=== PATIENT | female | born 1945 | race Caucasian/White ===

== ENCOUNTER 2016-11-19 16:24 | Inpatient (IN) | payer OTHER ==
[~2016-11-19] VITALS: Ht 165.1 cm; Wt 76.8 kg
--- NOTE | ~2016-11-19 | EKG ---
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
--- NOTE | ~2016-11-19 | H ---
[facility] [place] [address] HISTORY AND PHYSICAL Name: BELLO THOMAS Room #: 458-P [facility] IN M.R.#: [id number] Admission: 11/19/16 Attend Phys: Oseas Kitchen MD Discharge: Date of : 46 Report #: [id number] THIS REPORT FOR: //name// CC: Oseas Kitchen DATE OF SERVICE: 11/19/2016 CHIEF COMPLAINT: Trouble walking. HISTORY OF PRESENT ILLNESS: The patient is a 71-year-old female who came to the office this afternoon after a sudden developed of trouble walking around 10:00 this morning. She said she was in her normal state of health and she and her were out walking into a store, when she felt a sudden episode of unsteadiness, imbalance and dizziness, she described as a sense of spinning. She was leaning over towards the left side and felt as though she were going to fall. Her had to help her to the ground and she was unable to stand up due to severe dizziness and spinning. Eventually, some other customers helped and they got her into a chair to sit down. She denied any nausea or vomiting with the episode. She said since then she has had some mild headache or aching on the right side of her head, on the lateral area. She said this afternoon, the dizziness is a little better and her gait is somewhat improved, but she is still imbalanced. PAST MEDICAL HISTORY: Hypertension, osteoarthritis and essential tremor. PAST SURGICAL HISTORY: She has had a left total knee replacement. FAMILY HISTORY: Parents had heart disease. SOCIAL HISTORY: No chronic alcohol or tobacco use. She is and lives with her . ALLERGIES: CELEBREX and ANAPROX. MEDICATIONS: Aspirin 81 mg, Bystolic 10 mg, multivitamin, calcium, pravastatin 40 mg, primidone 50 mg twice a day, ibuprofen and Benicar and hydrochlorothiazide 40/12.5 mg. REVIEW OF SYSTEMS: Other than the above, she denies visual change, chest pain, shortness of breath, abdominal pain, nausea, vomiting, diarrhea, constipation, dysuria or syncope. PHYSICAL EXAMINATION: VITAL SIGNS: Blood pressure 134/80, temperature 98.2, pulse 68 and respirations 18. GENERAL: She is awake and alert, in no distress. [address] [address] HISTORY AND PHYSICAL Name: BELLO THOMAS Room #: 458-P [facility] IN .R.#: [id number] Admission: 11/19/16 Attend Phys: Oseas Kitchen MD Discharge: Date of : 47 Report #: [id number] HEAD AND NECK: Unremarkable. No nystagmus of the eyes. Neck, no bruits. HEART: Regular. No murmur. LUNGS: Clear to auscultation. ABDOMEN: Soft. Normoactive bowel sounds. EXTREMITIES: No cyanosis, clubbing or edema. NEUROLOGIC: Her cranial nerves are intact. Speech is fluent. She is alert and oriented. She had an unsteady gait with leaning towards the left. Global strength appears intact. ASSESSMENT: 1. Acute ataxia. 2. Possible cerebrovascular accident. 3. Hypertension. PLAN: Symptoms began over 5 hours ago and so at this point, it will just be medical treatment and workup. Concern is a possible vascular event this morning given her history of hypertension, although she is otherwise low risk factor, including no diabetes, smoking or previous vascular history. MRI will be obtained and carotid Dopplers and I will ask the neurology service to see her. <ELECTRONICALLY SIGNED> By: Oseas Kitchen MD 11/20/16 0927 1545 1626 Oseas Kitchen MD /nt
--- NOTE | ~2016-11-19 | D ---
[facility] [place] [address] DISCHARGE SUMMARY Name: BELLO THOMAS Room #: 458-P [facility] IN ..#: [id number] Admission: 11/19/16 Attend Phys: Oseas Kitchen MD Discharge: 11/20/16 Date of : 46 Report #: [id number] THIS REPORT FOR: //name// CC: Oseas iKtchen DATE OF SERVICE: 11/20/2016 FINAL DIAGNOSES: 1. Transient ischemic attack. 2. Vertigo. 3. Hypertension. HOSPITAL COURSE: The patient was admitted with acute onset of dizziness and difficulty walking. Lab work was obtained which revealed low sodium and felt this was related to her chlorthalidone use. Other labs were unremarkable. Lipid panel was stable, carotid Dopplers were negative. EKG showed sinus rhythm as well as telemetry. Blood pressures were reasonably stable during her stay MRI of the brain showed microvascular changes, but no evidence of acute stroke. There was no mass or sign of aneurysm. Her symptoms were much improved with conservative treatment. Her gait had improved and she had just minimal dizziness. I discussed the findings with the patient and her at the bedside. PHYSICAL EXAMINATION: GENERAL: On the day of discharge, she was awake and alert. VITAL SIGNS: Stable including temperature of 36.8, pulse 51, respirations of 15, blood pressure 149/77. LUNGS: Clear. HEART: Regular. ABDOMEN: Soft. EXTREMITIES: No edema. NEUROLOGIC: Her eyes had no nystagmus. She had her normal baseline essential tremor. Her gait was normal, although she did report a subjective feeling of imbalance and dizziness. DISPOSITION: She will be discharged to home with diet and activity as tolerated. She is not to drive for 2 days. Add meclizine for symptom treatment of vertigo. She can liberalize sodium in her diet. She will resume all other home medications. Follow up with me and Dr. Lee in a couple of weeks for blood pressure monitoring and lab work. I will also refer her to Dr. Jones as an outpatient regarding the essential tremor. <ELECTRONICALLY SIGNED> By: Oseas Kitchen MD 11/25/16 1300 1343 20 Oseas Kitchen MD /nt
[2016-11-19] MEDS ORDERED: BYSTOLIC 5 MG5 M1 PO (17:35)
[2016-11-19] MEDS ORDERED: PRAVACHOL40 MG PO (17:36)
[2016-11-19] MEDS ORDERED: EDARBYCLOR 40-1 EACH PO (17:36)
[2016-11-19] MEDS ORDERED: ASPIR 8181 M1 PO (17:37)
[2016-11-19] MEDS ORDERED: PRIMIDONE50 MG PO (17:46)
[2016-11-20] MEDS ORDERED: PRIMIDONE50 MG PO (10:12)
[2016-11-20 10:29] LABS: HEMATOCRIT 41.2 % (37.0-47.0); HEMOGLOBIN 14.4 gm/dL (12.0-15.0); MCH 29.8 pg (26.0-34.0); MCHC 34.9 g/dL (28.0-37.0); MCV 85.2 fL (80.0-100.0); RBC 4.83 mil/uL (4.20-5.00); RDW 13.8 % (10.5-14.5)
[2016-11-20 10:30] LABS: ALBUMIN 4.1 g/dL (3.4-5.0); ALKALINE PHOSPHATASE 43 U/L (46-116); ANION GAP 5 mmol/L (7-16); BUN 12 mg/dL (7-18); CALCIUM 9.4 mg/dL (8.5-10.1); CHLORIDE 94 mmol/L (98-107); CHOLESTEROL 169 mg/dL (<200); CO2 30 mmol/L (21-32); CREATININE 0.8 mg/dL (0.6-1.3); GLUCOSE 92 mg/dL (70-99); HDL CHOLESTEROL 66 mg/dL (>40); LDL CHOLESTEROL 78 mg/dL (<100); POTASSIUM 3.7 mmol/L (3.5-5.1); SGOT 20 U/L (15-37); SGPT 19 U/L (30-65); SODIUM 129 mmol/L (136-145); TC:HDL 2.6 Ratio (Not establshd); TOTAL BILIRUBIN 0.5 mg/dL (<0.1-1.0); TOTAL PROTEIN 7.7 g/dL (6.4-8.2); TRIGLYCERIDE 128 mg/dL (<150); VLDL 26 mg/dL (<40)
[2016-11-20 10:53] LABS: TSH 3.278 uIU/mL (0.358-3.740)
[2016-11-20] MEDS ORDERED: CVS BUFFERED A325 MG PO (13:34)
[2016-11-20] MEDS ORDERED: ACETAMINOPHEN325 M1 PO (13:35)
[2016-11-20] MEDS ORDERED: ANTIVERT25 MG PO (13:37)
[2016-11-21 02:11] LABS: GLYCOHEMOGLOBIN (HGB A1C) 5.1 % (4.8-5.6)
== END 2016-11-20 15:30 | disposition home or self-care (01) | DRG 69 ==
LOC: 4W 16:24
PROVIDERS: Internal Medicine Geriatric Medicine; Psychiatry & Neurology Neurology
DX: G45.9 Transient cerebral ischemic attack, unspecified (principal); E87.1 Hypo-osmolality and hyponatremia; R27.8 Other lack of coordination; I10 Essential (primary) hypertension; M19.90 Unspecified osteoarthritis, unspecified site; Z96.652 Presence of left artificial knee joint; E78.5 Hyperlipidemia, unspecified; Z82.49 Family history of ischemic heart disease and other diseases of the circulatory system; Z88.8 Allergy status to other drugs, medicaments and biological substances
CPT/HCPCS: 10045

== ENCOUNTER 2016-11-30 18:36 | Inpatient (IN) | payer OTHER ==
[~2016-11-30] VITALS: Ht 165.1 cm; Wt 77.1 kg
--- NOTE | ~2016-11-30 | H ---
[facility] [place] [address] HISTORY AND PHYSICAL Name: BELLO THOMAS Room #: 463-P [facility] IN .R.#: [id number] Admission: 11/30/16 Attend Phys: Oseas Kitchen MD Discharge: 12/03/16 Date of : 46 Report #: [id number] THIS REPORT FOR: //name// CC: Oseas Kitchen CHIEF COMPLAINT: Generalized weakness with tremors and disorientation. HISTORY OF PRESENT ILLNESS: The patient is a 71-year-old female, who presented to the emergency room, complaining of having tremors and disorientation. The patient states that she was at voodoo at around 05:30 in the evening yesterday, when she felt just weakness all over. The patient also was forgetful and not able to orient herself. She was not able to ambulate and had to call 911 to get her to the emergency room. After arrival to the emergency room, she felt better, but continued to have difficulty with recollecting things and memory. She had a similar episode, where she did fall to the ground, but did not lose consciousness about 2 weeks ago and was admitted and had investigations done. She was suspected to have TIA. The patient was functioning well at home in between the symptoms. Since being admitted to the hospital, she does not report any new symptoms, except for some numbness in her right leg in two toes. She denied having any weakness. She does still have difficulty remembering things, but denies having any focal weakness. PAST MEDICAL HISTORY: Significant history of hypertension, diverticulosis, peritonitis, and essential tremors. PAST SURGICAL HISTORY: Left total knee arthroplasty. ALLERGIES: She is known to be allergic to CELEBREX and NAPROSYN. MEDICATIONS: She was currently on was aspirin and Tylenol p.r.n. along with pravastatin, primidone, and meclizine p.r.n. SOCIAL HISTORY: She is . She does not smoke and does not drink alcohol. FAMILY HISTORY: There is no history of any illicit drug use. REVIEW OF SYSTEMS: She did complain of having some mild headache. Denied having any visual symptoms. No nausea or vomiting. No abdominal pain or no urinary symptoms. No chest pain. No breathing difficulty. PHYSICAL EXAMINATION: GENERAL: Pleasant elderly lady, who was resting in bed, did not appear to be in any acute distress. She was awake, alert, and oriented to place and person. VITAL SIGNS: She was afebrile with a pulse of 72 per minute and regular, respiratory rate of 16, blood pressure was 132/80. LUNGS: Clear to auscultation bilaterally with no wheezing or crackles. CARDIOVASCULAR: Heart sounds, first [place] [address] HISTORY AND PHYSICAL Name: BELLO THOMAS Shu Room #: 463-P [facility] IN M.R.#: [id number] Admission: 11/30/16 Attend Phys: Oseas Kitchen MD Discharge: 12/03/16 Date of : 46 Report #: [id number] ABDOMEN: Soft and nontender. Bowel sounds normally heard. EXTREMITIES: Did not reveal any edema. NEUROLOGIC: Speech was normal. Cranial nerve examination was normal. The patient was moving all 4 extremities equally and normally. There were no focal deficits noted. ASSESSMENT: 1. Transient ischemic attack. 2. Essential tremors. 3. Hypertension history. PLAN: To restart her diet and continue home medications. We will await Neurology consultation. <ELECTRONICALLY SIGNED> By: Shaun Dennison MD 12/05/16 1105 0821 1322 Shaun Dennison MD /nt
--- NOTE | ~2016-11-30 | EKG ---
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 Compared to ECG 11/19/2016 18:21:20 No significant changes Electronically Signed On 12-01-2016 11:24:57 CDT by Paulino Parson [email or web address] <ELECTRONICALLY SIGNED> By: Paulino Parson MD 12/01/16 1124 1917 16 MD KWAME Gonsalves
--- NOTE | ~2016-11-30 | EEG ---
[facility] [place] [address] ELECTROENCEPHALOGRAM Name: BELLO THOMAS Room #: 463-P [facility] IN M.R.#: [id number] Admission: 11/30/16 Attend Phys: Oseas Kitchen MD Discharge: Date of : 46 Report #: [id number] THIS REPORT FOR: //name// CC: Oseas Kitchen DATE OF SERVICE: 12/01/2016 This patient is being evaluated for an episode of unusual symptoms. EEG was done by placing the electrodes by standard 10-20 system of electrode placement. Both referential and sequential montages were used for recording. Background activity in this patient's EEG is about 11 Hz and 40 microvolts. It is a symmetrical activity. The patient goes to sleep that is associated with bilaterally symmetrical sleep spindle and vertex sharp waves. Photic stimulation is unremarkable. Throughout the record, no active epileptiform activity was noticed. IMPRESSION: This patient's EEG is within normal limits. Thank you very much for this referral. By: 0807 1114 Boaz Jones MD /nt
--- NOTE | ~2016-11-30 | D ---
[facility] [place] [address] DISCHARGE SUMMARY Name: BELLO THOMAS Room #: 463-P [facility] IN M.R.#: [id number] Admission: 11/30/16 Attend Phys: Oseas Kitchen MD Discharge: 12/03/16 Date of : 46 Report #: [id number] THIS REPORT FOR: //name// CC: Oseas Kitchen FINAL DIAGNOSES: 1. Seizure. 2. Hypertension. 3. Transient ischemic attack. HOSPITAL COURSE: The patient was admitted in confusional state, dysarthria and Neurology service thought these were representing type of seizure, Keppra was added. Other adjustments were made to her medications. Cardiology saw her, was no new recommendations other than blood pressure control. She had no other interval complications. With supportive measures, she was much improved, walking normally with normal speech and cognition. PHYSICAL EXAMINATION: On the day of discharge: GENERAL: She was awake and alert with stable vital signs. LUNGS: Clear. HEART: Regular. ABDOMEN: Soft. EXTREMITIES: Showed no edema. DISPOSITION: To be discharged to home with diet and activity as tolerated. Follow up with me, Dr. Lee and Dr. Jones 1-2 weeks. Medications will be given to the patient was nothing new, has Keppra 500 mg b.i.d. <ELECTRONICALLY SIGNED> By: Oseas Kitchen MD 12/04/16 0920 1047 1114 Oseas Kitchen MD /flor
--- NOTE | ~2016-11-30 | HC ---
[facility] [place] [address] CONSULTATION Name: BELLO THOMAS Room #: 463-P ADM IN M.R.#: [id number] Admission: 11/30/16 Attend Phys: Oseas Kitchen MD Discharge: Date of : 46 Report #: [id number] THIS REPORT FOR: //name// CC: Oseas Kitchen DATE OF SERVICE: 12/01/2016 HISTORY OF PRESENT ILLNESS: This is a 71-year-old female patient who was evaluated by multiple spells of confusion. The history is complicated. She indicates that the first spell was little more than a week ago. In fact, she was admitted to this hospital for that spell. She felt very dizzy. She was unable to stand up, it happened spontaneously. It was a severe dizziness and over a time she became better. It is not clear what the blood pressure and pulse was that time, but she had another spell in her doctor's office and that time apparently, she has no history of hypotension that time. She was admitted here on January 20 and she had multiple testing done and that testing included an MRI of the brain and MRA of the head. MRI of the brain demonstrate some T2 hyperintensity. MRA of the [place] was unremarkable. Carotid Doppler was done that was unremarkable. She was seen by cardiology and she was put on a monitor. Monitor went off couple of time, but they are not analyzed on monitor yet. This time, she had a spell where she felt dizzy. Again, her vision was blurred, her thought was not straight and she was confused. REVIEW OF SYSTEMS: Indicate she had a history of headache in the past, but she does not believe that was migraine. She does have a history of hypertension, but the blood pressure typically stays on 170 systolic . She had essential tremor, she used to see a neurologist in [place], but has not seen any neurologist recently. She denies any kind of stress. Otherwise, she is not complaining of any chest pain, respiratory difficulty, GI, , musculoskeletal, constitutional, dermatological, hematological, psychiatric, throat or allergic symptom associated with present symptomatology. She does have these symptoms, which may be secondary to ENT pathology. PAST MEDICAL HISTORY: Negative for this kind of spell. FAMILY HISTORY: Negative for early age strokes. SOCIAL HISTORY: She drinks alcohol occasionally, but does not smoke. PHYSICAL EXAMINATION: Indicate she is alert. She is responsive. She can follow simple commands. Her speech, concentration, fund of knowledge and memory is at her baseline. Cranial nerve examination 2-12 is unremarkable. She has symmetrical strength, sensation, reflexes and tone in all [address] [address] CONSULTATION Name: BELLO THOMAS Room #: 463-P [facility] IN M.R.#: [id number] Admission: 11/30/16 Attend Phys: Oseas Kitchen MD Discharge: Date of : 46 Report #: [id number] is no papilledema. There is no meningeal sign. There is no carotid bruit. There is no cerebellar sign. She is well-developed individual who does not have any dysmorphic features of eyes, ears and face. Her hearing and vision looks adequate. She has no thyroid mass. Her heart sounds are unremarkable and she does not have any murmur. There is no respiratory difficulty or rhonchi. Her pulses are palpable. She has no edema, cyanosis or jaundice. Blood pressure is 144/64, respirations 18, pulse is 59, temperature is 97.5. She did have an MRI of the brain, carotid Doppler and MRA and that was reviewed and is summarized as above. Her CMP and CBC was unremarkable. She did have a thyroid function test and that appear unremarkable. IMPRESSION: Clinically, it does not look like that there is any neurological etiology for the patient's symptom. She just had the workup 1 week ago. Main thing I will suggest is look at her EEG at the moment. We will see cardiac evaluation and see what they find. I will suggest getting an ENT consult also to do the Abbie maneuver to see if we can find something up there. Symptoms are not typical for benign paroxysmal vertigo, but we can get their opinion. Stress can cause this kind of symptoms, but the patient denies any kind of stress. RECOMMENDATIONS: 1. I will order an EEG in this patient. 2. We will await cardiology evaluation. 3. I will suggest an ENT consult. 4. Dr. Davis will be back tomorrow morning and will follow up this patient with you from tomorrow for further recommendation. 5. She does need some more workup to define the diagnosis because presently there is no clear diagnosis and no neurological etiology, which has been identified, which can explain her symptom. Thank you very much for this referral. By: 1030 0108 Boaz Jones MD /nt
--- NOTE | ~2016-11-30 | HC ---
[facility] [place] [address] CONSULTATION Name: BELLO THOMAS Room #: 463-P ADM IN M.R.#: [id number] Admission: 11/30/16 Attend Phys: Oseas Kitchen MD Discharge: Date of : 46 Report #: [id number] THIS REPORT FOR: //name// CC: Oseas Kitchen DATE OF SERVICE: 12/01/2016 INDICATION: Weakness/visual blurring. HISTORY OF PRESENT ILLNESS: This is a 71-year-old female, followed by Dr. Lee for CAD risk factors, presenting with an episode of disorientation and visual blurring. The patient was at taoism yesterday when she developed generalized weakness, disorientation and had visual disturbance. The visual blurriness lasted for approximately 30 minutes. During this time, she had an exacerbation of tremors in her extremities. The patient was brought to the ER and her symptoms have resolved. The patient was recently admitted to the hospital with possible TIA several weeks ago. An MRI of the head was unremarkable at that time. She did undergo a CT scan last evening, no acute abnormalities were evident. The patient denies any episodes of chest pains, shortness of breath, PND or orthopnea. PAST MEDICAL HISTORY: Hypertension, hypercholesterolemia, tremors, appears to have a questionable TIA several weeks ago, aspirin was increased from 81 mg to 325 mg daily. CURRENT MEDICATIONS: Include aspirin 325 mg daily, Bystolic 10 mg daily, Pravachol 40 mg daily, primidone, meclizine p.r.n., and Edarbi 40 mg daily. Allergies: Include CELEBREX and NAPROXEN. SOCIAL HISTORY: Negative for tobacco use. FAMILY HISTORY: Negative for premature CAD. REVIEW OF SYSTEMS: A full 10-point review of systems performed. Only the pertinent positives and negatives are described in the HPI. PHYSICAL EXAMINATION: VITAL SIGNS: Blood pressure is 148/70, heart rate is 68 beats per minute. GENERAL APPEARANCE: A well-developed, well-nourished female in no acute respiratory distress. HEAD AND EYES: Normocephalic. Sclerae are anicteric. ENT: Oral mucosa moist. NECK: Supple. LUNGS: Clear to auscultation. CARDIAC: Regular rate and rhythm, S1, S2 positive. [facility] [address] [place] [address] CONSULTATION Name: BELLO THOMAS Room #: 463- ADM IN M.R.#: [id number] Admission: 11/30/16 Attend Phys: Oseas Kitchen MD Discharge: Date of : 47 Report #: [id number] ABDOMEN: Soft, nontender. Bowel sounds positive. EXTREMITIES: No major joint deformities. No edema. LABORATORY VALUES: White count is 7.7, hemoglobin 13.3, sodium is 135, BUN is 12 and creatinine is 0.9. Troponin is negative. ASSESSMENT: 1. Disorientation/visual blurring/tremors, rule out Transient Ischemic Attack episode. Her symptoms have resolved. The etiology is unclear at this time. Since this is her second episode in the past several weeks, she probably needs more antiplatelet therapy than aspirin. We will defer to nephrology regarding final recommendations. Consider Plavix therapy at this time. 2. Cardiovascular status, had a stress test in 2014 that was negative. Appears to be clinically stable. 3. Hypertension, continue with Bystolic and Edarbi. 4. Hypercholesterolemia, continue with pravastatin at this time. Thank you for allowing me to participate in the care of your patient. <ELECTRONICALLY SIGNED> By: Paulino Parson MD 12/02/16 0831 0939 0025 Paulino Parson MD /nt
[~2016-11-30 18:36] MED LIST: ACETAMINOPHEN325 M1 PO; ANTIVERT25 MG PO; ASPIR 8181 M1 PO; BYSTOLIC 5 MG5 M1 PO; CVS BUFFERED A325 MG PO; EDARBYCLOR 40-1 EACH PO; PRAVACHOL40 MG PO; PRIMIDONE50 MG PO
[2016-11-30 18:39] VITALS: BP 177/89
[2016-11-30] MEDS ORDERED: EDARBI40 MG PO (18:54)
[2016-11-30 19:35] LABS: BASOPHILS 0.7 % (0.0-2.0); EOSINOPHILS 1.8 % (0.0-3.0); HEMATOCRIT 37.8 % (37.0-47.0); HEMOGLOBIN 13.3 gm/dL (12.0-15.0); LYMPHOCYTES 25.3 % (24.0-44.0); MCH 30.1 pg (26.0-34.0); MCHC 35.1 g/dL (28.0-37.0); MCV 85.7 fL (80.0-100.0); MONOCYTES 7.7 % (1.0-8.0); PLATELET COUNT 287 thou/uL (150-400); POLYS 64.5 % (36.0-66.0); RBC 4.41 mil/uL (4.20-5.00); RDW 13.9 % (10.5-14.5); WBC 7.7 thou/uL (4.0-11.0)
[2016-11-30 19:36] LABS: MANUAL DIFF NO
[2016-11-30 19:45] LABS: ANION GAP 9 mmol/L (7-16); BUN 12 mg/dL (7-18); CALCIUM 9.3 mg/dL (8.5-10.1); CHLORIDE 99 mmol/L (98-107); CO2 27 mmol/L (21-32); CREATININE 0.9 mg/dL (0.6-1.3); GLUCOSE 93 mg/dL (70-99); POTASSIUM 3.8 mmol/L (3.5-5.1); SODIUM 135 mmol/L (136-145)
[2016-11-30 19:48] LABS: APTT 27.8 Seconds (24.5-32.8); PROTIME 10.7 Seconds (9.3-11.4)
[2016-11-30 19:54] LABS: ALKALINE PHOSPHATASE 44 U/L (46-116); SGOT 23 U/L (15-37); SGPT 23 U/L (30-65); TOTAL BILIRUBIN 0.3 mg/dL (<0.1-1.0); TROPONIN-I < 0.04 ng/mL (<0.04-0.07)
[2016-11-30 20:55] VITALS: BP 141/81
[2016-11-30 21:04] LABS: AMP/METHAMP Negative (Negative); BARBITURATES POSITIVE (Negative); BENZODIAZEPINES Negative (Negative); COCAINE Negative (Negative); METHADONE Negative (Negative); OPIATES Negative (Negative); PCP Negative (Negative); THC Negative (Negative)
[2016-11-30 21:19] VITALS: BP 166/87
[2016-11-30] MEDS ORDERED: MECLIZINE HCL12.5 MG PO (22:01)
[2016-12-01 02:59] VITALS: BP 145/64
[2016-12-01 05:24] LABS: CALCIUM 8.9 mg/dL (8.5-10.1); CREATININE 0.7 mg/dL (0.6-1.3); POTASSIUM 4.1 mmol/L (3.5-5.1)
[2016-12-01 07:24] VITALS: BP 144/64
[2016-12-01 12:53] VITALS: BP 140/82
[2016-12-01 16:28] VITALS: BP 138/65
[2016-12-01 21:06] VITALS: BP 161/72
[2016-12-02 07:25] VITALS: BP 142/77
[2016-12-02 11:17] VITALS: BP 150/70
[2016-12-02 15:19] VITALS: BP 144/82
[2016-12-02 20:55] VITALS: BP 147/79
[2016-12-03 03:52] VITALS: BP 133/75
[2016-12-03 08:00] VITALS: BP 158/72
[2016-12-03] MEDS ORDERED: KEPPRA 500 MG500 M1 PO (09:45)
[2016-12-03 14:22] VITALS: BP 158/72
== END 2016-12-03 15:18 | disposition home or self-care (01) | DRG 101 ==
LOC: ER 18:36 → EROBS 20:41 → 4W 20:41
PROVIDERS: Emergency Medicine
DX: R56.9 Unspecified convulsions (principal); G45.9 Transient cerebral ischemic attack, unspecified; G25.0 Essential tremor; I10 Essential (primary) hypertension; E78.00 Pure hypercholesterolemia, unspecified; Z96.652 Presence of left artificial knee joint; Z88.8 Allergy status to other drugs, medicaments and biological substances
CPT/HCPCS: 10045

== ENCOUNTER 2018-10-27 15:58 | Emergency (ER) | payer OTHER ==
[~2018-10-27] VITALS: Ht 165.1 cm; Wt 78.5 kg
[~2018-10-27 15:58] MED LIST changes: +EDARBI40 MG PO; +KEPPRA 500 MG500 M1 PO; +MECLIZINE HCL12.5 MG PO
[2018-10-27] MEDS ORDERED: NORFLEX100 MG PO (17:17)
[2018-10-27] MEDS ORDERED: ULTRAM 50MG TAB50 MG PO (17:20)
[2018-10-27 17:33] VITALS: BP 178/84
== END 2018-10-27 17:41 | disposition home or self-care (01) ==
LOC: ER 15:58
DX: S63.592A Other specified sprain of left wrist, initial encounter (principal); S20.212A Contusion of left front wall of thorax, initial encounter; I10 Essential (primary) hypertension; Z88.1 Allergy status to other antibiotic agents; Z88.8 Allergy status to other drugs, medicaments and biological substances; V89.2XXA Person injured in unspecified motor-vehicle accident, traffic, initial encounter; Y93.89 Activity, other specified; Y92.89 Other specified places as the place of occurrence of the external cause; Y99.8 Other external cause status

== ENCOUNTER → 2019-12-09 | Outpatient (CLI) | payer OTHER ==
[~2019-12-09] MED LIST changes: +NORFLEX100 MG PO; +ULTRAM 50MG TAB50 MG PO
== END ==
LOC: SJCVCIMAG 11:54 → SJCVC 13:07 → SJCVCIMAG 13:07
DX: I65.23 Occlusion and stenosis of bilateral carotid arteries (principal); I08.3 Combined rheumatic disorders of mitral, aortic and tricuspid valves; I10 Essential (primary) hypertension; R94.39 Abnormal result of other cardiovascular function study; E78.00 Pure hypercholesterolemia, unspecified; Z82.49 Family history of ischemic heart disease and other diseases of the circulatory system

== ENCOUNTER → 2019-12-14 | Outpatient (CLI) | payer OTHER ==
[~2019-12-14] VITALS: Ht 165.1 cm; Wt 78.5 kg
[~2019-12-14] MED LIST changes: +CALCIUM CARBON500 MG PO; +COZAAR 25 MG TA25 M2 PO; +PLAVIX 75 MG TA75 MG PO; +PRAVASTATIN SOD40 MG PO; +SINEMET 10-1001 EAC1 PO; +SUPER THERAVIT1 EACH PO; +TOPROL XL100 MG PO; +VITAMIN C500 M2 PO
[2019-12-14 07:22] VITALS: BP 161/93
[2019-12-14 07:47] LABS: ABSOLUTE NEUTROPHILS 4.1 thou/uL (1.4-8.2); BASOPHILS 0.6 % (0.0-2.0); EOSINOPHILS 2.3 % (0.0-3.0); HEMATOCRIT 41.9 % (37.0-47.0); HEMOGLOBIN 14.2 gm/dL (12.0-15.0); LYMPHOCYTES 26.9 % (24.0-44.0); MCH 30.1 pg (26.0-34.0); MCHC 33.9 g/dL (28.0-37.0); MCV 88.9 fL (80.0-100.0); MONOCYTES 7.7 % (1.0-8.0); PLATELET COUNT 249 thou/uL (150-400); POLYS 62.5 % (36.0-66.0); RBC 4.72 mil/uL (4.20-5.00); RDW 14.4 % (10.5-14.5); WBC 6.6 thou/uL (4.0-11.0)
[2019-12-14 07:51] LABS: CALCIUM 9.7 mg/dL (8.5-10.1); CREATININE 0.9 mg/dL (0.6-1.0); POTASSIUM 4.3 mmol/L (3.5-5.1)
--- NOTE | 2019-12-14 08:02 | EKG ---
[facility] [place] [address] ELECTROCARDIOGRAM REPORT Name: BELLO THOMAS Room #: [facility]#: [id number] Admission: 12/14/19 Attend Phys: Jeremy Lee MD, Discharge: Date of : 47 Report #: [id number] THIS REPORT FOR: cc: Tony Tariq MD, Christopher B. MD Lundgren,Aleksey Blevins MD 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 12/14/19 0801 0757 0757 Aleksey Kelly MD, [facility] /EPI
--- NOTE | 2019-12-14 15:43 | CATHLAB ---
[facility] [place] [address] INVASIVE PROCEDURE REPORT Name: BELLO THOMAS Room #: REG STAR Fide#: [id number] Admission: 12/14/19 Attend Phys: Jeremy Lee MD, Discharge: Date of : 47 Report #: [id number] THIS REPORT FOR: cc: Tony Tariq MD, Christopher B. MD Mancuso, Gerald M. MD [facility] ~ APPROVED REPORT Study performed: 12/14/2019 07:49:21 Patient Details Patient Status: Out-Patient Room #: The patient is a 74 year-old female Event Personnel Jeremy Lee Ob Tech, Ibis Yao RN RN, Sylvia Ernst RTR, Nestor Horner Sherra RTR Monitor Procedures Performed Art Access - R femoral artery* Left Heart Cath w/or w/o Coronaries [id number] [facility] [id number] Initial Mod Sed Same Phys/QHP [facility] [id number] Mod Sed Same Phys/QHP Ea [id number] Aortogram Abdominal Peripheral Angio [id number] Indication Chest pain Procedure Narrative The Right Groin^ was infiltrated with 1% Lidocaine subcutaneous anesthesia. A PINNACLE 6FR Sheath #[id number] sheath was inserted into the RFA^. Coronary angiography was performed using coronary diagnostic catheters. The right coronary system was accessed and visualized with a JR4 catheter. The left coronary system was accessed and visualized with a JL4 catheter. The left ventricle was accessed and visualized with a PIGTAIL catheter. Left ventriculogram was performed in 30 degree projection. An aortogram of the abdominal aorta was performed. Pre-demployment femoral angiogram was performed . The patient tolerated the procedure well and there were no complications associated with the procedure. There was no hematoma. Intraoperative Conscious Sedation Sedation start time: 829 Case end Time: 858 [facility] [place] [address] INVASIVE PROCEDURE REPORT Name: BELLO THOMAS Room #: [facility] Roderick#: [id number] Admission: 12/14/19 Attend Phys: Jeremy Lee, Discharge: Date of : 47 Report #: [id number] Fentanyl 50 mcg Versed 1 mg Fluoro Time: 1.19 minutes Dose: DAP 1689.70 cGycm2 186 mGy Contrast Type and Amount: Omnipaque 100 ml Hemodynamics The aortic pressure is 161/78 mmHg with a mean of 49 mmHg. The left ventricular pressure is 153/2 mmHg with a mean of mmHg. The left ventricular end diastolic pressure is 23 mmHg. Conclusion #1. Normal left ventricular size and systolic function EF 60% #2 abdominal aortogram reveals mild tortuosity. No evidence of aneurysm and single bilateral renal arteries appear widely patent. #3 left main free of disease giving rise to LAD and circumflex #4 LAD is an eccentric 30 to 40% ostial lesion just off the left main with mild distal disease. #5 circumflex OM nondominant with mild disease #6 large dominant right coronary artery without occlusive disease. Minimal plaquing Recommendations and plan: Continue aggressive risk factor modification. No indication for coronary intervention. Etiology of chest pain is noncardiac. <ELECTRONICALLY SIGNED> By: Jeremy Lee MD, [facility] 12/14/19 1542 [id number] 1542 Jeremy Lee MD, FACC /INF
== END | disposition home or self-care (01) ==
LOC: CATH 06:45
PROVIDERS: Internal Medicine Cardiovascular Disease
DX: R07.9 Chest pain, unspecified (principal); I25.10 Atherosclerotic heart disease of native coronary artery without angina pectoris; I10 Essential (primary) hypertension; E78.5 Hyperlipidemia, unspecified; Z98.890 Other specified postprocedural states; Z79.899 Other long term (current) drug therapy; Z86.73 Personal history of transient ischemic attack (TIA), and cerebral infarction without residual deficits

== ENCOUNTER → 2020-08-01 | Outpatient (CLI) | payer OTHER | LOC: SJCVC 13:32 | PROVIDERS: ATTEND Internal Medicine Cardiovascular Disease | DX: I25.10 Atherosclerotic heart disease of native coronary artery without angina pectoris (principal); I10 Essential (primary) hypertension; E78.00 Pure hypercholesterolemia, unspecified; I38 Endocarditis, valve unspecified; Z82.49 Family history of ischemic heart disease and other diseases of the circulatory system; Z86.73 Personal history of transient ischemic attack (TIA), and cerebral infarction without residual deficits ==

== ENCOUNTER → 2021-01-10 | Outpatient (CLI) | payer OTHER | LOC: SJCVCIMAG 11:45 | PROVIDERS: ATTEND Internal Medicine Cardiovascular Disease | DX: I08.3 Combined rheumatic disorders of mitral, aortic and tricuspid valves (principal); I27.20 Pulmonary hypertension, unspecified; I10 Essential (primary) hypertension; I25.10 Atherosclerotic heart disease of native coronary artery without angina pectoris; E78.5 Hyperlipidemia, unspecified; Z79.899 Other long term (current) drug therapy; Z86.73 Personal history of transient ischemic attack (TIA), and cerebral infarction without residual deficits ==

== ENCOUNTER → 2021-09-05 | Outpatient (CLI) | payer OTHER | LOC: SJCVC 10:59 | PROVIDERS: ATTEND Internal Medicine Cardiovascular Disease | DX: R94.31 Abnormal electrocardiogram [ECG] [EKG] (principal); I10 Essential (primary) hypertension; E78.00 Pure hypercholesterolemia, unspecified; I25.10 Atherosclerotic heart disease of native coronary artery without angina pectoris; I38 Endocarditis, valve unspecified; Z72.89 Other problems related to lifestyle; Z79.899 Other long term (current) drug therapy; Z88.1 Allergy status to other antibiotic agents; Z88.8 Allergy status to other drugs, medicaments and biological substances; Z82.49 Family history of ischemic heart disease and other diseases of the circulatory system ==